=== PATIENT | male | born 1960 | race Caucasian/White ===

== ENCOUNTER 2020-01-15 01:53 | Outpatient (CLI) | payer OTHER, SELFPAY ==
--- NOTE | 2020-01-15 | DI.CTLCSR_ITS ---
EXAM: CT CHEST LUNG CANCER SCREEN CLINICAL HISTORY: SCREENING FOR LUNG CA,Z13.9,CURRENT SMOKER F17.210,[id number] TECHNIQUE: COMPARISON: No exams were available for comparison FINDINGS: CT examination of the chest was performed utilizing low-dose lung cancer screening protocol. Images obtained through the upper abdomen show unremarkable appearance of visualized portions of sple en kidneys adrenals and pancreas. There is a low-attenuation left hepatic lobe mass with mean attenu ation -7 Hounsfield units consistent with cyst. No mediastinal or hilar adenopathy seen by noncontrast criteria. No pleural effusion. Tracheobronch ial tree appears intact. There are predominantly subpleural pulmonary emphysematous changes. There are subtle ground-glass op acities of both lungs versus mosaic attenuation. No focal consolidation seen. There are few small noncalcified pulmonary nodules. The largest measure 4-5 millimeters in diameter in the left upper lobe and in the right middle lobe. No prior studies available for comparison. IMPRESSION: Bilateral noncalcified pulmonary nodules are noted, the largest 4-5 millimeters in diameter bilateral ly. Lung RADS Cat 2 - Benign Appearance / Behavior: Nodules with a very low likelihood of becoming a clin ically active cancer due to size or lack of growth Continue annual screening with LD CT in 12 months.
== END 2020-01-15 02:13 ==
PROVIDERS: PCP Nurse Practitioner Family; Visit Provider Nurse Practitioner Primary Care
DX: Z12.2 Encounter for screening for malignant neoplasm of respiratory organs (principal); F17.210 Nicotine dependence, cigarettes, uncomplicated; K76.89 Other specified diseases of liver; J43.8 Other emphysema; J98.4 Other disorders of lung
CPT/HCPCS: G0297